=== PATIENT | male | born 1960 | race Caucasian/White ===

== ENCOUNTER → 2020-10-27 | Outpatient (CLI) | payer OTHER ==
[~2020-10-27] MED LIST: PROAIR HFA8.5 GM INH
[2020-10-27 15:38] LABS: HEMOGLOBIN 15.6 gm/dl (14.0-17.5); RED BLOOD COUNT 5.23 M/UL (4.20-5.50); WHITE BLOOD COUNT 10.1 K/UL (4.5-11.0)
[2020-10-27 16:05] LABS: BUN/CREATININE RATIO 10 (0-10)
== END ==
LOC: LAB 14:50
PROVIDERS: Colon & Rectal Surgery
DX: K57.90 Diverticulosis of intestine, part unspecified, without perforation or abscess without bleeding (principal)
CPT/HCPCS: 36415; 80048; 85025

== ENCOUNTER 2021-02-04 12:10 | Emergency (ER) | payer OTHER ==
[2021-02-04 13:40] LABS: HEMOGLOBIN 14.7 gm/dl (14.0-17.5); RED BLOOD COUNT 4.91 M/UL (4.20-5.50); WHITE BLOOD COUNT 9.7 K/UL (4.5-11.0)
[2021-02-04 14:04] LABS: BUN/CREATININE RATIO 20 (0-10)
[2021-02-04] MEDS ORDERED: PROAIR HFA8.5 GM INH (16:12)
== END 2021-02-04 16:30 | disposition home or self-care (01) ==
LOC: ER1 12:10
PROVIDERS: Physician Assistant
DX: U07.1 COVID-19 (principal); J12.81 Pneumonia due to SARS-associated coronavirus; I10 Essential (primary) hypertension; Z79.899 Other long term (current) drug therapy
CPT/HCPCS: 36600; 71045; 80053; 81001; 82803; 83605; 85025; 87040; 99285; J7030